=== PATIENT | female | born 1975 | race Caucasian/White ===

== ENCOUNTER → 2020-09-06 10:12 | Outpatient (CLI) | payer OTHER, SELFPAY ==
--- NOTE | 2020-09-06 10:17 | RAD_ITS ---
STUDY: X-RAY - LEFT SHOULDER REASON FOR EXAM: Female, 44 years old. Inflammatory polyarthropathy. TECHNIQUE: 2 view(s) of the shoulder. COMPARISON: None. FINDINGS: Normal glenohumeral articulation. Normal acromioclavicular joint. Normal acromion. Normal humeral head and visualized proximal humerus. The soft tissue structures are unremarkable. Normal visualized pulmonary apex. RAD/Shoulder min 2 Views IMPRESSION: No abnormality of the left shoulder. Electronically Signed: Shaggy Olivares MD at 11:41 EDT , Service support ,
--- NOTE | 2020-09-06 10:17 | RAD_ITS ---
STUDY: X-RAY - PELVIS REASON FOR EXAM: Female, 44 years old. Inflammatory polyarthropathy. TECHNIQUE: One view of the pelvis was obtained. COMPARISON: None. FINDINGS: There is a non-specific bowel gas pattern. Pelvic phleboliths. 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 RAD/Pelvis 1 or 2 Views IMPRESSION: Mild arthrosis of the sacroiliac joints, symphysis pubis and both hips medially. No acute abnormality, erosive changes or periostitis. Electronically Signed: Shaggy Olivares MD at 11:41 EDT , Service support ,
[2020-09-06 12:52] LABS: Absolute Lymphocyte Count 1.05 X10^3/uL (0.83-4.51); Absolute Neutrophil Count 1.8 X10^3/uL (2.0-7.7); Basophil# 0.02 X10^3/uL; Basophil% 0.6 % (0-1); Eosinophil# 0.08 X10^3/uL; Eosinophils% 2.5 % (0-5); Hematocrit 45.3 % (37-47); Hemoglobin 14.6 g/dL (12.0-15.0); Lymphocyte # 1.05 X10^3/ul (0.83-4.51); Lymphocyte % 32.2 % (19-41); Mean Corp Hgb Conc 32.2 g/dL (32-36); Mean Corpuscular Hgb 29.1 pg (27.0-32.0); Mean Corpuscular Volume 90.2 fL (81-99); Mean Platelet Vol. 13.3 fl (6.2-12.0); Monocyte# 0.26 X10^3/uL; NRBC Flagged by Analyzer 0 % (0-5); Neutrophil # 1.84 X10^3/uL (2.7-7.7); Neutrophil % 56.4 % (47-70); Platelet Count 133 K/mm3 (150-450); RBC Distribution Width CV 11.8 % (11.6-14.6); RBC Distribution Width SD 38.9 fl (35.1-43.9); Red Blood Count 5.02 M/mm3 (4.2-5.4); White Blood Count 3.3 K/mm3 (4.4-11.0)
[2020-09-06 13:50] LABS: ALB/GLOB Ratio 1.1 RATIO (0.9-2.4); AST(SGOT) 21 U/L (15-37); Alanine Aminotransfer ALT/SGPT 22 U/L (13-56); Alkaline Phosphatase 74 U/L (45-117); Anion Gap 5 (5-15); BUN 14 mg/dL (7-18); BUN/Creat Ratio 18.2 RATIO (10-20); CRP < 2.90 mg/L (0.0-3.0); Chloride 106 mmol/L (98-107); Creatinine, Serum 0.77 mg/dL (0.55-1.02); EST Glomerular Filtration Rate 87 mL/min (>60); Erythrocyte Sedimentation Rate 2 mm/hr (0-30); Est Glom Filt Rate - Afr Amer 106 mL/min (>60); Globulin 3.5 g/dL (2.2-4.2); Glucose 78 mg/dL (74-106); Potassium 3.8 mmol/L (3.5-5.1); Protein, Total 7.5 g/dL (6.4-8.2); Rheumatoid Factor < 10.0 IU/mL (<15); Sodium Level 139 mmol/L (136-145)
[2020-09-06 16:32] LABS: Hepatitis B Surface Antibody Non-Reactive; Hepatitis B Surface Antigen Non-Reactive (Nonreactive); Hepatitis C Antibody Non-Reactive (Nonreactive)
[2020-09-09 15:44] LABS: CCP IgG Antibodies 5 units (0-19); HLA B27 Negative (.)
== END ==
PROVIDERS: PCP Family Medicine; Referring Provider Internal Medicine Rheumatology; Visit Provider Internal Medicine Rheumatology
DX: M06.4 Inflammatory polyarthropathy (principal); M79.7 Fibromyalgia; G43.909 Migraine, unspecified, not intractable, without status migrainosus; I34.1 Nonrheumatic mitral (valve) prolapse
CPT/HCPCS: 36415; 72170; 73030; 80053; 81374; 85025; 85652; 86140; 86200; 86431; 86706; 86803; 87340

== ENCOUNTER 2021-02-21 13:19 | Day surgery (SDC) | payer OTHER, SELFPAY ==
[2021-02-21] VITALS (8 sets, daily range): BP systolic 93–111; BP diastolic 36–72; PULSE 62–91; RESP 16–18; TEMP 35.8–37; O2SAT 94–100; BMI 27.8
--- NOTE | 2021-02-21 13:29 | EKG12_ITS ---
Test Reason : PRE OP Blood Pressure : / mmHG Vent. Rate : 057 BPM Atrial Rate : 057 BPM P-R Int : 128 ms QRS Dur : 080 ms QT Int : 404 ms P-R-T Axes : -06 043 044 degrees QTc Int : 393 ms Somatic/Motion Artifact Sinus bradycardia Confirmed by ONEYDA KYLE, KAITLYNN ([id number]), digital editor PIETER SNOWDEN ([id number]) on 03/10/2021 8:33:09 AM Referred By: Jean-Paul Partida Confirmed By:KAITLYNN CALL MD
[2021-02-21] MEDS: Lactated Ringers 1,000 ML 15 ML IV ×2 (13:56→15:00)
[2021-02-21 14:22] LABS: Hematocrit 42.6 % (37-47); Hemoglobin 14.1 g/dL (12.0-15.0); Mean Corp Hgb Conc 33.1 g/dL (32-36); Mean Corpuscular Hgb 29.3 pg (27.0-32.0); Mean Corpuscular Volume 88.4 fL (81-99); Mean Platelet Vol. 12.7 fl (6.2-12.0); Platelet Count 112 K/mm3 (150-450); RBC Distribution Width CV 11.5 % (11.6-14.6); RBC Distribution Width SD 37.2 fl (35.1-43.9); Red Blood Count 4.82 M/mm3 (4.2-5.4); White Blood Count 2.3 K/mm3 (4.4-11.0)
[2021-02-21 14:45] LABS: Thyroid Stim Hormone (TSH) 1.37 uIU/mL (0.358-3.74)
[2021-02-21] MEDS: Bupivacaine Mpf 0.5% 30 ML VIAL (15:20)
[2021-02-21] MEDS: Epinephrine (1 mg/ml) 1 MG/ML VIAL (15:20)
--- NOTE | 2021-02-21 15:26 | PCM.OPRPT ---
Report of Operation Date of Procedure: 02/21/21 Pre-Operative Diagnosis: Adhesive capsulitis, SAIS, AC arthrosis left shoulder Post-Operative Diagnosis: same Surgery/Procedure Performed:: ARNALDO, ASD, [place] procedure left shoulder Surgeon: Jean-Paul Partida solar installer pv: Shaggy Marr Type of Anesthesia: General/Regional Anesthesiologist: Akbar Huizar Estimated Blood Loss (mL): 5 cc Admit VTE Documentation VTE Present on Admission: No VTE Mechan Device Prophylaxis: SCD's and Thigh High FELIX Hose VTE Pharm Prophylaxis ordered?: No Reason prophylaxis not ordered:: Treatment Not Indicated
[2021-02-21] MEDS: HYDROcodone Bitartrate/Apap 5/325 Tablet PO (17:27)
== END 2021-02-21 17:51 | disposition home or self-care (01) ==
LOC: SDC 13:20 → AC 13:22
PROVIDERS: Anesthesiology; PCP Family Medicine; Referring Provider Orthopaedic Surgery; Visit Provider Orthopaedic Surgery
PROC: (CPT 29805; principal; 2021-02-21 14:30)
DX: M75.02 Adhesive capsulitis of left shoulder (principal); M19.012 Primary osteoarthritis, left shoulder; M06.9 Rheumatoid arthritis, unspecified; M79.7 Fibromyalgia; E03.9 Hypothyroidism, unspecified; Z79.899 Other long term (current) drug therapy
CPT/HCPCS: 29824; 29826; 84443; 85027; 93005; J7120; J2405

== ENCOUNTER → 2023-03-26 | Outpatient (CLI) | payer OTHER, SELFPAY ==
--- OUTSIDE RECORDS SUMMARY | 2023-03-26 07:38 | XMS RPT_ITS | CCD ---
Author Name Unknown Address [facility] [address] [place] [address] Organization [facility] Care Team Providers Care Transmitter Operator Name Role Phone REJI HANSEN, DR NANNETTE Verdugo Primary Care Physician JAH HARDEN Attending Unavailable NANNETTE NEVILLE Primary Care Unavailable Ruth Baca Unavailable Nannette Neville DO Primary Care Provider [phone] JAH HARDEN Referring Unavailable NANNETTE NEVILLE Primary Care Unavailable DEEDEE AL Attending Unavailab le REJI , DR NANNETTE Verdugo Primary Care UnavailCHARIS Moscoso MD Attending Unavailable REJI DO, DR NANNETTE Verdugo Primary Care UnavailDEEDEE Iqbal Attending Unavailab le REJI , DR NANNETTE Verdugo Primary Care UnavailROSANNA Mcmanus MD Attending Unavaila ble REJI DO, DR NANNETTE Verdugo Primary Care Unavailaury miller Pcp MANAGER GOVERNMENT, Erin Primary Care Provider Unavailaury e Allergies Allergy Classification Reported Allergen(s) Allergy Type Date of Onset Reaction(s) Facility (14 sources) traMADol; Translations: [tramadol] Drug Allergy 03-04-2018 [facility] Medications Current Medications Medication Drug Class(es) Dates Sig (Normalized) Sig (Original) ascorbic acid 250 mg oral tablet (4 sources) Vitamin C Start: 09-11-2019 Vitamin C 250 mg oral tablet Dose : 250 mg = 1 tab(s), Oral, qDay, # 30 tab(s), 0 Refill(s) Start Date: 09/11/19 Status: Ordered benzonatate 100 mg oral capsule (2 sources) Non-narcotic Antitussive Start: 04-27-2022 take 1 capsule by mouth three times daily benzonatate 100 mg oral capsule take 1 capsule by mouth three times a day for 7 days Start Date: 04/27/22 Status: Ordered DULoxetine 30 mg delayed release oral capsule (1 source) Serotonin and Norepinephrine Reuptake Inhibitor Start: 10-12-2022 DULoxetine 30 mg oral delayed release capsule Dose : 30 mg = 1 cap(s), Oral, qDay, # 30 cap(s), 0 Refill(s), Pharmacy: [id number] #[id number], Fibromyalgia, 172, cm, 10/12/22 9:41:00 EDT, Height, kg, 10/12/22 9:41:00 EDT, Dosing Weight Start Date: 10/12/22 Status: Ordered 168 hr estradiol 0.17541 mg/hr transdermal system (7 sources) Estrogen Start: 09-11-2019 estradiol 0.1 mg/24 hours weekly transdermal film, extended release Apply 1 patch(es), Topical, qWeek, # 12 patch(es), 3 Refill(s), Pharmacy: [id number] 167.64, cm, 09/11/19 13:36:00 EDT, Height, 70, kg, 09/11/19 13:36:00 EDT, Dosing Weight Start Date: 09/11/19 Status: Ordered Completed/Discontinued Medications Medication Drug Class(es) Dates Sig (Normalized) Sig (Original) Albuterol (Eqv-ProAir HFA) 90 mcg/inh inhalation aerosol (2 sources) Start: 04-19-2022 End: 05-19-2022 take 1 dose by inhalation every six hours as needed for cough Albuterol (Eqv-ProAir HFA) 90 mcg/inh inhalation aerosol Dose = 2 puff(s), Inhalation, q6hr, PRN Cough, # 18 gram(s), 0 Refill(s), Pharmacy: [id number] #[id number], Bronchitis Cough, 168.9, cm, 07/05/20 16:08:00 EDT, Height Start Date: 04/19/22 Stop Date: 05/19/22 Status: Ordered levothyroxine sodium 0.025 mg oral tablet (10 sources) l-Thyroxine Start: 06-29-2022 take 1 tablet by mouth once daily SYNTHROID 25 mcg tablet Take 1 tablet by mouth once daily. 0 06/29/2022 Active Problems Active Problems Problem Classification Problem Date Documented Date Episodic/Chronic Chronic obstructive pulmonary disease and bronchiectasis (2 sources) Bronchitis 04-19-2022 Episodic Coagulation and hemorrhagic disorders (2 sources) Chronic idiopathic thrombocytopenic purpura; Translations: [Immune thrombocytopenic purpura] Onset: 03-04-2018 03-04-2018 Chronic Diabetes or abnormal glucose tolerance complicating ; childbirth; or the puerperium (1 source) History of gestational diabetes mellitus 10-13-2022 Episodic Diseases of white blood cells (2 sources) Leukopenia; Translations: [Decreased white blood cell count, unspecified] Onset: 03-04-2018 03-04-2018 Chronic Heart valve disorders (10 sources) Mitral valve prolapse 04-14-2014 Chronic Menopausal disorders (1 source) Disorder associated with menstruation AND/OR menopause; Translations: [Menopausal and female climacteric states] Chronic Menstrual disorders (10 sources) Excessive and frequent menstruation 10-03-2017 Chronic Nutritional deficiencies (1 source) Vitamin D deficiency 10-13-2022 Chronic Other connective tissue disease (1 source) Fibromyalgia 10-12-2022 Episodic Other lower respiratory disease (2 sources) Cough 04-19-2022 Episodic Other nervous system disorders (10 sources) H/O: migraine 10-03-2017 Episodic Other non-traumatic joint disorders (1 source) Multiple joint pain; Translations: [Pain in unspecified joint] 09-01-2022 Episodic Other non-traumatic joint disorders (1 source) Pain in right knee; Translations: [Pain in joint, lower leg] 09-01-2022 Episodic Other non-traumatic joint disorders (1 source) Pain in unspecified joint; Translations: [Pain in joint, multiple sites] Onset: 09-01-2022 Episodic Other upper respiratory infections (2 sources) Acute sinusitis 04-27-2022 Episodic Thyroid disorders (11 sources) 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 09-01-2022 07:42-0400 Body weight 85.73 kg Jah Fina PA-C Work Phone: [facility] 09-01-2022 07:42-0400 Diastolic blood pressure 82 mm[Hg] Jah Fina PA-C Work Phone: [facility] 09-01-2022 07:42-0400 Heart rate 62 /min Jah Fina PA-C Work Phone: [facility] 09-01-2022 07:42-0400 SaO2% (BldA) [Mass fraction] 96 % Jah Fina PA-C Work Phone: [facility] 09-01-2022 07:42-0400 Systolic blood pressure 131 mm[Hg] Jah Fina PA-C Work Phone: [facility] Encounters Encounter Date Encounter Type Care Provider Facility Start: 10-26-2022 End: 10-27-2022 ambulatory ROSANNA TAYLOR MD Facility:B Start: 10-26-2022 End: 10-26-2022 Patient encounter procedure ROSANNA TAYLOR MD [facility] Start: 09-01-2022 End: 09-02-2022 ambulatory JAH FINA Facility:[facility] Start: 09-01-2022 End: 09-01-2022 ambulatory JAH FINA Facility:[facility] Start: 09-01-2022 End: 09-01-2022 Patient encounter procedure Jah Fina PA-C Work Phone: Rheumatology Procedures Date Procedure Procedure Detail Performing Clinician Start: 10-17-[address] NANNETTE FAN DO Start: 10-17-[address] NANNETTE NEVILLE DO Plan of Treatment Date Care Activity Detail Author Start: 10-27-2022 Influenza vaccination C [facility] Start: 2022 Cologuard (FIT-DNA) Cologuard (FIT-D NA) [facility] Start: 2022 Colonoscopy Colonoscopy [facility] Start: 2022 Colorectal Cancer Screening Colorectal Cancer Screening [facility] Start: [address] COLONOGRAPHY [facility] Start: 2022 Diabetes Screening Diabetes Screenin g [facility] Start: 2022 Fecal Occult Blood Fecal Occult Bloo d [facility] Start: 2022 Lipid 1996 panel - S franco or Plasma Lipid Screening [facility] Start: 2022 SIGMOIDOSCOPY SIGMOIDOSCOPY [facility] Start: 02-26-2022 DEPRESSION ASSESSMENT DEPRESSION ASS ESSMENT [facility] Start: 01-25-2021 COVID-19 VACCINE (3 - Pfizer series) COVID-19 VACCINE (3 - Pfizer series) [facility] Start: 10-10-2019 PAP TESTING PAP TESTING [facility] Start: [address] [facility] Start: 10-10-2007 HPV TESTING HPV TESTING [facility] Start: 1998 Pap Testing Pap Testing [facility] Start: 1996 Urine microalbumin profile [facility] Start: 10-10-1995 HIV SCREENING HIV SCREENING [facility] Start: 1977 HEPATITIS B (1 of 3 - 3-dose series) HEPATITIS B (1 of 3 - 3-dose series) [facility] Start: 1977 Hepatitis B Vaccine (1 of 3 - 3-dose series) Hepatitis B Vaccine (1 of 3 - 3-dose series) 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 [facility] Payers Date Payer Category Payer Unknown [id number] 2018 Unknown MMO MMO [employer] PPO [id number] 2018-Present [phone] [address] [place] [address] PPO [id number] 1977 Unknown [id number] 1977 Unknown [id number] 1977 Unknown [id number] 1977 Unknown [id number] Social History Date Type Detail Facility Start: 04-05-2018 End: 09-01-2022 Never smoked tobacco (finding) [facility] Sex Assigned At Female [facility] Start: 09-01-2022 Tobacco use and exposure Smokeless tobacco non-user 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 Start: 08-31-2022 End: 09-01-2022 History of Social function [facility] Start: 08-31-2022 End: 09-01-2022 Tobacco use panel [facility] Adult Depression Screening Assessment [address] [facility] Start: 1975 Sex Assigned At Not on file [facility] Tobacco smoking stat [facility] Tobacco smoking consumption unknown [facility] Start: 11-18-2021 End: 11-28-2021 Exposure to SARS-CoV-2 (event) Not sure [facility] Clinical Notes 05-19-2020 to 09-01-2022 Patient InstructionsJah Harden PA-C - 09/01/2022 7:38 AM EDTLaboratoryLaboratory Note Date & Type Note Facility 09-01-2022 Note HNO ID: [id number] Author: Jah Harden PA-C Service: ? Author Type: Physician Skull Grinder Type: Progress Notes Filed: 09/01/2022 4:41 PM Note Text: Rheumatology CONSULTATION Referring Provider: None Date of Service: 09/01/2022 Gender: female Ethnicity: White Age: [age] year old Chief Complaint: New Patient Evaluation (RA) Last Rheumatology visit: None at [facility] Major Vargas is a 46 year old White female who presents on 09/01/2022 for in person visit for evaluation of New Patient Evaluation (RA). HISTORY OF PRESENT ILLNESS RF Neg 07/02/2020 ALEKS negative 03/24/2020 CCP negative 07/07/21 She is here in preparation for the rebollar. She states a few years ago she saw someone in [place] for RA. She states she has never had the blood work markers for her RA. She took plaquenil for RA for over a year, never really saw improvement from this treatment. She states that she feels OK in the summer, much worse with weather changes, stairs are difficult. Wants to try to start something now in preparation for the winter She states during the winter she has to sit on a heating pad because of her symptoms. She also is going to see endocrinology for her thyroid issues. She states she previously was taking naltrexone from her application lead. Her pain is all over: Knees, ankles, hands, shoulders, neck, entire back Joint swelling: No AM stiffness: I don't know about that Describes her symptoms as all over ache in the bones . She states when she is on the prednisone, it takes the edge off States her knees hurt a lot. She had to move her bedroom downstairs because of her knee pain. She has difficulty with inclines They offered a medication in the past that could cause nausea. RHEUMATOLOGIC REVIEW OF SYSTEMS: No ulcers in mouth or nose No photosensenitivity No history of blood clots No miscarriages + fatigue No history of Raynaud's No fevers No bright red painful eyes Occasional sicca No sob No cough No diarrhea, intermittent constipation + chronic back pain ache all over ? history of psoriasis - has red patch and scaling on her elbows No specific morning stiffness No recent weight loss No neuropathy Family History: Dad with [employer] - muscular degeneration disease Mom - all of it, autoimmune stuff but no specific diagnosis ever identified (PsO on scalp and ears) Grandmother with arthritis. Social: works as [employer] in [place] [employer] child Smoking: no ETOH: none Disease History See HPI Patient-Entered Data RAPID 3 Burns Activities of Daily Living 08/31/2022 12:50 PM Dress self? Without ANY difficulty Get in and out of bed? Without ANY difficulty Walk outdoors? Without ANY difficulty Wash and dry body? Without ANY difficulty Get in and out of car? Without ANY difficulty RAPID 3 Disease Activity Weighed Score Levels: 0 - 1: Near Remission 1.3 - 2.0: Low Severity 2.3 - 4.0: Moderate Severity 4.3 - 10.0: High Severity RAPID-3 Weighed Score 08/31/2022 RAPID 3 Weighed Score 2.11 (Moderate Severity (MS)) PROMIS Assessments PROMIS Global Health - (T-Scores - the mean of general population = 50. Five points is a clinically meaningful difference.) 08/31/2022 Physical T-Score 42.3 Mental T-Score 43.5 PROMIS CAT Pain Interference 08/31/2022 PROMIS Pain Interference T-Score (range: 10 - 90) 56 (mild) PROMIS Pain Interference Percentile 27 % PROMIS CAT Fatigue 08/31/2022 PROMIS Fatigue T-Score 53 (within normal limits) PROMIS Fatigue Percentile 38 % PROMIS PHYSICAL FUNCTION T-SCORE 08/31/2022 PROMIS Physical Function T-Score 44 (mild dysfunction) Physical Function Percentile 27 % PAIN EVALUATION No data found in the last 1 encounters. Treatment History Plaquenli x 1 year Relevant Previous Investigations CBC Latest Ref Rng AND Units 03/04/2018 WBC 3.70 - 11.00 k/uL 3.50(L) HEMOGLOBIN 11.5 - 15.5 g/dL 14.8 HEMOGLOBIN, JULIETTE 11.5 - 15.5 g/dL 14.5 HEMATOCRIT 36.0 - 46.0 % 45.0 PLATELETS 150 - 400 k/uL 125(L) ABS NEUT (ANC) 1.45 - 7.50 k/uL 1.89 ABS NEUT, JULIETTE 1.45 - 7.50 k/uL 2.13 ABS LYMP, JULIETTE 1.00 - 4.00 k/uL 1.10 ABS LYMPH 1.00 - 4.00 k/uL 1.12 ESR, WSR Latest Ref Rng AND Units 09/01/2022 WSR 0 - 20 mm/hr 2 CRP Latest Ref Rng AND Units 09/01/2022 CRP <0.9 mg/dL <0.3 CK Latest Ref Rng AND Units 09/01/2022 CK 42 - 196 U/L 76 Hepatitis Screen Latest Ref Rng AND Units 03/04/2018 HEPCABEIA Negative Negative Urinalysis Latest Ref Rng AND Units 07/07/2021 RBC, URINE 0 - 3 RBC/HPF 1 Imaging / Studies Last XR Hand/Finger - Impression Only No resulted procedures found. Last MRI Hand - Impression Only No resulted procedures found. Last XR Chest - Impression Only No resulted procedures found. Last XR Cervical Spine - Impression Only No resulted procedures found. OUTSIDE STUDIES / DATA 07/15/2021 EXAMINATION: XR both hands Berenice two views each side, four views COMPARIS (more content not included)... 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 This condition is associated with abnormal central processing of various peripheral stimuli including pain. Fibromyalgia is a musculoskeletal manifestation of this condition. It is a very common condition and is a diagnosis of inclusion rather than that of exclusion, i.e. it can co-exist with other concomitant rheumatologic and/or non-rheumatologic conditions. A meta-analysis from the [facility] in [place] suggested that concomitant fibromyalgia is common in patients with inflammatory arthritis, which can have a major impact on assessing disease severity and treatment decisions. The overall prevalence of fibromyalgia was 21% among patients with rheumatoid arthritis and 13% in ankylosing spondylitis, whereas the condition is reported in approximately 1% to 5% of the general population, according to Bernard Cooper, [facility], PhD, of the [facility] in [place], and colleagues. The cornerstones of therapy for fibromyalgia (based on level 1 evidence) are regular aerobic exercise (stationary bike, pool therapy), optimal sleep, and optimal treatment of depression. Optimal quality sleep (especially deep sleep - phase 3/4 NREM) is important to achieve. If your sleep remains disturbed, you might need to have a sleep study to identify a primary sleep disorder that might need concomitant treatment. You might also benefit from relaxation techniques such as yoga, luisito chi, acupuncture, or biofeedback to help deal better with stress. I emphasize that all the three aspects of the treatment (sleep, exercise, depression) be addressed simultaneously for maximum benefit and effective treatment of this condition. Doing one or the other will result in less than an optimal response to treatment. Medications sometimes used to treat fibromyalgia include those to help correct sleep disturbances and depression such as low dose antidepressants (Cymbalta or Savella) or non-habit forming sedatives and mild analgesics such as Tylenol. Lyrica is another drug that has been FDA approved for treatment of fibromyalgia. Narcotics have been found to be not only ineffective, but harmful and habit forming, and should be avoided. Therapy must be highly individualized. Most signs and symptoms of fibromyalgia can be managed by primary care providers under the guidance of a specialist. So please discuss the following with your primary care provider: - Aquatic therapy - Routine low grade aerobic exercise - Relaxation techniques / mindfulness / yoga /Luisito Chi / Qi Gong - Improvement of sleep hygiene - Appropriately address depression/anxiety with SNRIs - Can use Gabapentin and Tricyclics for symptomatic benefit - Occupational therapy evaluation for desensitization therapy. Please continue current medications for now. Final treatment recommendations will be based on completed evaluation and establishment of a diagnosis. Aleve (naproxen) 220 mg 1 twice daily for 2-4 weeks. documented in this encounter [facility] 09-01-2022 History of Present illness Narrative Images from the original note were not included. Rheumatology CONSULTATION Referring Provider: None Date of Service: 09/01/2022 Gender: female Ethnicity: White Age: [age] year old Chief Complaint: New Patient Evaluation (RA) Last Rheumatology visit: None at [facility] Major Vargas is a 46 year old White female who presents on 09/01/2022 for in person visit for evaluation of New Patient Evaluation (RA). HISTORY OF PRESENT ILLNESS RF Neg 07/02/2020 ALEKS negative 03/24/2020 CCP negative 07/07/21 She is here in preparation for the rebollar. She states a few years ago she saw someone in [place] for RA. She states she has never had the blood work markers for her RA. She took plaquenil for RA for over a year, never really saw improvement from this treatment. She states that she feels OK in the summer, much worse with weather changes, stairs are difficult. Wants to try to start something now in preparation for the winter She states during the winter she has to sit on a heating pad because of her symptoms. She also is going to see endocrinology for her thyroid issues. She states she previously was taking naltrexone from her application lead. Her pain is all over: Knees, ankles, hands, shoulders, neck, entire back Joint swelling: No AM stiffness: I don't know about that Describes her symptoms as all over ache in the bones . She states when she is on the prednisone, it takes the edge off States her knees hurt a lot. She had to move her bedroom downstairs because of her knee pain. She has difficulty with inclines They offered a medication in the past that could cause nausea. RHEUMATOLOGIC REVIEW OF SYSTEMS: No ulcers in mouth or nose No photosensenitivity No history of blood clots No miscarriages + fatigue No history of Raynaud's No fevers No bright red painful eyes Occasional sicca No sob No cough No diarrhea, intermittent constipation + chronic back pain ache all over ? history of psoriasis - has red patch and scaling on her elbows No specific morning stiffness No recent weight loss No neuropathy Family History: Dad with [employer] - muscular degeneration disease Mom - all of it, autoimmune stuff but no specific diagnosis ever identified (PsO on scalp and ears) Grandmother with arthritis. Social: works as [employer] in [place] [employer] child Smoking: no ETOH: none Disease History See HPI Patient-Entered Data RAPID 3 Burns Activities of Daily Living 08/31/2022 12:50 PM Dress self? Without ANY difficulty Get in and out of bed? Without ANY difficulty Walk outdoors? Without ANY difficulty Wash and dry body? Without ANY difficulty Get in and out of car? Without ANY difficulty RAPID 3 Disease Activity Weighed Score Levels: 0 - 1: Near Remission 1.3 - 2.0: Low Severity 2.3 - 4.0: Moderate Severity 4.3 - 10.0: High Severity RAPID-3 Weighed Score 08/31/2022 RAPID 3 Weighed Score 2.11 (Moderate Severity (MS)) PROMIS Assessments PROMIS Global Health - (T-Scores - the mean of general population = 50. Five points is a clinically meaningful difference.) 08/31/2022 Physical T-Score 42.3 Mental T-Score 43.5 PROMIS CAT Pain Interference 08/31/2022 PROMIS Pain Interference T-Score (range: 10 - 90) 56 (mild) PROMIS Pain Interference Percentile 27 % PROMIS CAT Fatigue 08/31/2022 PROMIS Fatigue T-Score 53 (within normal limits) PROMIS Fatigue Percentile 38 % PROMIS PHYSICAL FUNCTION T-SCORE 08/31/2022 PROMIS Physical Function T-Score 44 (mild dysfunction) Physical Function Percentile 27 % PAIN EVALUATION No data found in the last 1 encounters. Treatment History Plaquenli x 1 year Relevant Previous Investigations CBC Latest Ref Rng & Units 03/04/2018 WBC 3.70 - 11.00 k/uL 3.50(L) HEMOGLOBIN 11.5 - 15.5 g/dL 14.8 HEMOGLOBIN, JULIETTE 11.5 - 15.5 g/dL 14.5 HEMATOCRIT 36.0 - 46.0 % 45.0 PLATELETS 150 - 400 k/uL 125(L) ABS NEUT (ANC) 1.45 - 7.50 k/uL 1.89 ABS NEUT, JULIETTE 1.45 - 7.50 k/uL 2.13 ABS LYMP, JULIETTE 1.00 - 4.00 k/uL 1.10 ABS LYMPH 1.00 - 4.00 k/uL 1.12 ESR, WSR Latest Ref Rng & Units 09/01/2022 WSR 0 - 20 mm/hr 2 CRP Latest Ref Rng & Units 09/01/2022 CRP <0.9 mg/dL <0.3 CK Latest Ref Rng & Units 09/01/2022 CK 42 - 196 U/L 76 Hepatitis Screen Latest Ref Rng & Units 03/04/2018 HEPCABEIA Negative Negative Urinalysis Latest Ref Rng & Units 07/07/2021 RBC, URINE 0 - 3 RBC/HPF 1 Imaging / Studies Last XR Hand/Finger - Impression Only No resulted procedures found. Last MRI Hand - Impression Only No resulted procedures found. Last XR Chest - Impression Only No resulted procedures found. Last XR Cervical Spine - Impression Only No resulted procedures found. OUTSIDE STUDIES / DATA 07/15/2021 EXAMINATION: XR both hands ATUL and Cheryl two views each side, four views COMPARISON: None HISTORY: ORDERING SYSTEM PROVIDED HISTORY: Reason for Exam: pain in left and right hand, FINDINGS: No acute fracture, dislocation, bony lytic process or periosteal reaction is seen in the visualized bones and joints. No significant degenerative or erosive type of arthritis or soft tissue calcification. IMPRESSION: No significant skeletal abnormality is seen in either hand. EXAMINATION: XR both knees three views each side COMPARISON: None HISTORY: ORDERING SYSTEM PROVIDED HISTORY: Reason for Exam: pain in right knee; ORDERING SYSTEM PROVIDED HISTORY: Reason for Exam: pain in left knee, FINDINGS: No acute fracture, dislocation, bony lytic process or periosteal reaction is seen in the visualized bones and joints. No significant degenerative or erosive type of arthritis or soft tissue calcification. No joint space narrowing or joint effusion. IMPRESSION: No significant skeletal abnormality is seen. Review of Systems Review of Systems CONSTITUTION: Positive for: Recent weight change Negative for: Fever HEENT: Negative for: Nosebleeds, Mouth sores, Trouble swallowing and Dry mouth RESPIRATORY: Negative for: Cough, Shortness of breath and Pain with breathing GASTROINTESTINAL: Negative for: Melena, Diarrhea, Heartburn and Abdominal pain MUSCULOSKELETAL: Positive for: Arthralgias, Myalgias, Joint swelling and Morning Joint Stiffness Negative for: Muscle weakness NEUROLOGICAL: Positive for: Headaches and Memory loss Negative for: Numbness SKIN: Positive for: Rash and Nail changes Negative for: Sun Sensitive Rash, Skin changes and Hair loss EYES: Negative for: Eye pain, Eye redness, Eye dryness and visual disturbance CARDIOVASCULAR: Negative for: Chest pain and Leg swelling GENITOURINARY: Negative for: Dysuria and Hematuria HEMATOLOGIC/LYMPHATIC: Negative for: Swollen glandsAll other reviewed and negative other than HPI. Problem List ACTIVE PROBLEM LIST Chronic Itp (Idiopathic Thrombocytopenia) (Hcc) Leukopenia Past Medical History No past medical history on file. Past Surgical History PAST SURGICAL HISTORY Procedure Laterality Date HYSTERECTOMY HX 2018 Family History FAMILY HISTORY Problem Relation Age of Onset Asthma Mother other (MSA) Mother other (IBM) Father Stroke Paternal Grandmother Cancer Paternal Grandfather leukemia Cancer Maternal Aunt breast Social History Social History Tobacco Use Smoking status: Never Smokeless tobacco: Never Substance Use Topics Alcohol use: No Drug use: No Medications Current Outpatient Medications Medication Sig SYNTHROID 25 mcg tablet Take 1 tablet by mouth once daily. thyroid, pork, 90 mg tablet Take 1 tablet by mouth once daily. progesterone micronized (PROMETRIUM) 100 mg capsule Take 1 capsule by mouth once daily. estradiol topical cream 0.05% (0.5 mg/gram) (CPD) Apply to affected area. Apply 0.1 mL daily to upper inner arm. Estradiol 3.5 mg Estriol 0.5 mg/0.1 mL cream naltrexone 4.5 mg cap Take by mouth. No current facility-administered medications for this visit. Physical Exam BP 131/82 Pulse 62 Ht 5' 6 (1.68m) Wt 189 lb (85.7kg) SpO2 96% BMI 30.52 kg/(m^2). Physical Exam Constitutional: General: She is not in acute distress. Appearance: Normal appearance. She is not toxic-appearing. HENT: Head: Normocephalic and atraumatic. Eyes: General: No scleral icterus. Conjunctiva/sclera: Conjunctivae normal. Cardiovascular: Rate and Rhythm: Normal rate and regular rhythm. Pulses: Normal pulses. Heart sounds: Normal heart sounds. Pulmonary: Effort: Pulmonary effort is normal. Breath sounds: Normal breath sounds. No stridor. No wheezing or rales. Musculoskeletal: Cervical back: Normal range of motion and neck supple. No tenderness. Right lower leg: No edema. Left lower leg: No edema. Comments: No swelling or synovitis noted in hands, wrists, elbows, shoulders, knees, ankles or feet today. Able to make fists. + TTP to bilateral knees with pain in popliteal region Lymphadenopathy: Cervical: No cervical adenopathy. Skin: General: Skin is warm and dry. Findings: No rash. Comments: No malar rash + Red erythematous plaque on R distal forearm extensor surface L forearm with scaling on extensor surface of forearm No scaling in ears or around scalp Neurological: General: No focal deficit present. Mental Status: She is alert. Mental status is at baseline. Psychiatric: Mood and Affect: Mood normal. Behavior: Behavior normal. Thought Content: Thought content normal. Judgment: Judgment normal. There is currently no information documented on the homunculus. Go to the Rheumatology activity and complete the homunculus joint exam. Joint Exam 09/01/2022 No joint exam has been documented for this visit Impression Diagnoses: (M25.50) Pain in joint, multiple sites (primary encounter diagnosis) (M25.561, M25.562, G89.29) Chronic pain of both knees Hepatitis B Antibody test: Negative (03/04/2018) Major Vargas is a 46 year old female with past medical history of Chronic ITP, Hypothyroidism who is here today for evaluation of multiple joint pain, history of seronegative RA, fibromyalgia. 1/ Joint pain -previously diagnosed with seronegative rheumatoid arthritis and fibromyalgia. Tried 1 year trial of hydroxychloroquine without benefit. Only gets partial benefit with steroid courses. By history most concerning symptoms of inflammatory arthritis are bilateral knee bilateral ankle and bilateral shoulder pain. However there is no prolonged morning stiffness. There is no objective synovitis or joint effusions. Also her history of a widespread ache is more consistent with fibromyalgia. -At this time I feel rheumatoid arthritis is less likely. . she does have rash on bilateral elbows, it does not appear to be classic psoriasis plaques but given her symptoms and history, it may be reasonable for her to see dermatology and pursue formal diagnosis of psoriasis. -Discussed that both fibromyalgia and inflammatory arthritis can coexist. At this time most of her symptoms seem consistent with fibromyalgia. Discussed fibromyalgia diagnosis, treatments including Cymbatla , gabapentin, Lyrica. Encouraged follow-up with primary care for a prescription of these. - Also discussed seeing integrative medicine for fibromyalgia if she is interested. -Discussed if bilateral knee pain persists, I would recommend physical therapy initially. Also consider daily trial of naproxen 220 to 440 mg twice daily OTC on a regular basis. This will help treat mild form of inflammatory psoriatic arthritis, If this is present. RF, CCP, ALEKS all negative previously. - We will check inflammatory markers, CK. -Recommend follow-up in rheumatology in 3 to 4 months after trial of above medications with primary care. 2/ General Health Maintenance - - The patient should continue to follow up with their primary care provider regarding all other concerns documented above which were not addressed at this visit, as well as to remain up to date on all Preventive Health measures and routine malignancy screening based on his/her age and comorbid conditions. Plan Medication Adjustments today: Consider Cymbalta/savella with PCP or Gabapentin/Lyrica OTC naproxen 220-440 mg BID OTC for knee pain Labs: -SED RATE WESTERGREN: -C-REACTIVE PROTEIN (CRP): -CK CREATINE KINASE: -VITAMIN D 25 HYDROXY: Referrals -CONSULT TO PHYSICAL THERAPY: -CONSULT TO WELLNESS PHYSICIAN: Patient was given time to ask questions and agrees with plan as above. Follow up 3-4 mo with Rheum Physician No follow-ups on file. I spent a total of 65 minutes on the date of the service which included preparing to see the patient, [id number] patient care, completing clinical documentation, obtaining and/or reviewing separately obtained history, performing a medically appropriate examination, counseling and educating the patient/family/caregiver, and ordering medications, tests, or procedures. Jah Harden PA-C cc: PCP: Nannette Neville DO [address] [place] [address] documented in this encounter [facility] 06-27-2022 Evaluation + Plan note Diagnostic Tests PendingThyroglobulin, Serum with Reflex 06/27/22 [facility] 04-29-2022 Note . MICRO - Microbiology PROCEDURE: Urine Culture [*1] SOURCE: Urine, Clean Catch BODY SITE: COLLECTED DATE/TIME: 04/27/2022 16:44 EST RECEIVED DATE/TIME: 04/27/2022 21:03 EST START DATE/TIME: 04/27/2022 21:03 EST FREE TEXT SOURCE: FINAL REPORTS Final Report [] Verified Date/Time/Personnel: 04/29/2022 08:01 EST >100,000 cfu/ml Mixed growth consistent with normal urogenital wilton. PRELIMINARY REPORTS Preliminary Report [] Verified Date/Time/Personnel: 04/28/2022 09:03 EST No growth to date Performing Locations *1: This test was performed at: [facility], [address] [place] [address], [id number] , [facility] ([place]) 05-19-2020 Evaluation + Plan note Future Scheduled TestsThyroid Stimulating Hormone 05/19/20 [facility] Evaluation + Plan note Future Appointments Appointment Date:01/06/2021 02:30:00 PM Scheduled Provider:NANNETTE NEVILLE DO Location:[facility] Appointment Type:PC OV Future Scheduled TestsThyroid Stimulating Hormone 05/19/20 [facility] Evaluation + Plan note Future Appointments Appointment Date:12/26/2022 03:45:00 PM Scheduled Provider:ROSANNA TAYLOR MD Location:[facility] Appointment Type:ENDO OV Diagnostic Tests PendingThyroid Stimulating Immunoglobulin 10/26/22 [facility] Narrative No data available for this section [facility] Discharge instructions No data available for this section [facility] Progress note No data available for this section [facility] Summary Purpose Family History No Family History Records FoundNo Family History Records FoundNo Family History Records Found No data available for this section No Family History Records Found Advance Directives No Advanced Directives Records FoundNo Advanced Directives Records FoundNo Advanced Directives Records FoundNo Advanced Directives Records Found Reason for Referral Specialty Diagnoses / Procedures Referred By Contac t Referred To Contact Diagnoses Pain in joint, multiple sites Chronic pain of both knees Procedures CONSULT TO [facility]NESS PHYSICIAN OFFICE/OUTPATIENT [facility] MDM 60-74 MINUTES Jah Harden PA-C [address] [place] [address] Referral ID Status Reason Start Date Expiration Date Visits Requested Visits Authorized [id number] Authorized PCP Requested Referral 09/01/2022 09/01/2023 1 1 Specialty Diagnoses / Procedures Referred By Contac t Referred To Contact [facility] Diagnoses Chronic pain of both knees Procedures CONSULT TO PHYSICAL THERAPY PHYSICAL THERAPY EVALUATION HIGH COMPLEX 45 MINS Jah Harden PA-C [address] [place] [address] [facility] [address] [place] [address] Referral ID Status Reason Start Date Expiration Date Visits Requested Visits Authorized [id number] Pending Review Auto-Generat ed Referral 09/01/2022 09/01/2023 1 1 Additional Source Comments Care Team (unrecognized sect ion and content) Transmitter Operator Relationship Specialty Start Date End Date Pcp, SUPA Khan PCP - General 03/14/11 10/27/11 Nannette Neville DO [address] [facility] [place] [address] PCP - General Family Medicine 10/21/21 Ruth Baca [address] [place] [id number] Referring Rheumatology 08/01/21 INFORMATION SOURCE (unrecogn ized section and content) DATE CREATED AUTHOR AUTHOR'S ORGANIZ ATION 09/01/2022 [facility] DATE CREATED AUTHOR AUTHOR'S ORGANIZ ATION 09/02/2022 [facility] DATE CREATED AUTHOR AUTHOR'S ORGANIZ ATION 10/27/2022 [facility] ([place]) Care Team (unrecognized sect ion and content) Care Team Personnel Name: NANNETTE NEVILLE DO Position: P4 Physician - Primary Care Member Role: Primary Care Physician Address: Address: [address] [place] [address]- Care Team Related Persons Name: MARCIA VARGAS Address: Home [address] [place], [place] [id number] [place] Address: [address] [id number] Name: NATHAN HENSON Address: Home [address] [place], [place] [id number] [place] Source Comments (unrecognize d section and content) In the event this informatio n is protected by the Federal Confidentiality of Alcohol and Drug Abuse Patient Records regulations: The Federal rules restrict any use of the information to criminally investigate or prosecute any alcohol or drug abuse patient.[facility] the event this information is protected by the Federal Confidentiality of Alcohol and Drug Abuse Patient Records regulations: The Federal rules restrict any use of the information to criminally investigate or prosecute any alcohol or drug abuse patient.[facility] Reason for Visit (unrecogniz ed section and content) FOR RECORDS PERTAINING TO PATIENTS WHO ARE OR HAVE BEEN ENROLLED IN A CHEMICAL DEPENDENCY/SUBSTANCEABUSE PROGRAM, SOME INFORMATION MAY BE OMITTED. This clinical summary was aggregated from multiple sources. Caution should be exercised in using it in the provision of clinical care. This summary normalizes information from multiple sources, and as a consequence, information in this document may materially change the coding, format and clinical context of patient data. In addition, data may be omitted in some cases. CLINICAL DECISIONS SHOULD BE BASED ON THE PRIMARY CLINICAL RECORDS. [facility] [employer] provides no warranty or guarantee of the accuracy or completeness of information in this document.
[2023-03-26 10:54] LABS: Free T3 3.3 pg/mL (2.18-3.98); T4 Free Direct 0.61 ng/dL (0.76-1.46); Thyroid Stim Hormone (TSH) 5.41 uIU/mL (0.358-3.74)
== END | disposition home or self-care (01) ==
LOC: MTLAB 07:22
PROVIDERS: PCP Family Medicine; Referring Provider Internal Medicine Endocrinology, Diabetes & Metabolism; Visit Provider Internal Medicine Endocrinology, Diabetes & Metabolism
DX: E03.8 Other specified hypothyroidism (principal); M79.7 Fibromyalgia; E55.9 Vitamin D deficiency, unspecified
CPT/HCPCS: 36415; 84439; 84443; 84481

== ENCOUNTER → 2023-10-02 | Outpatient (CLI) | payer OTHER, SELFPAY ==
[2023-10-02 10:41] LABS: Vitamin D,25 Hydroxy 61.8 ng/mL
[2023-10-02 10:52] LABS: ALB/GLOB Ratio 1.1 RATIO (0.9-2.4); AST(SGOT) 23 U/L (15-37); Alanine Aminotransfer ALT/SGPT 24 U/L (13-56); Albumin, Serum 3.6 g/dL (3.2-5.0); Alkaline Phosphatase 91 U/L (45-117); Anion Gap 4 (5-15); BUN 21 mg/dL (7-18); BUN/Creat Ratio 25.2 RATIO (10-20); Calcium,Total 9.1 mg/dL (8.5-10.1); Chloride 109 mmol/L (98-107); Creatinine, Serum 0.83 mg/dL (0.55-1.02); EST Glomerular Filtration Rate 79 mL/min (>60); Est Glom Filt Rate - Afr Amer 95 mL/min (>60); Free T3 4.5 pg/mL (2.18-3.98); Globulin 3.4 g/dL (2.2-4.2); Glucose 90 mg/dL (74-106); Potassium 4.1 mmol/L (3.5-5.1); Sodium Level 141 mmol/L (136-145); T4 Free Direct 0.76 ng/dL (0.76-1.46); Thyroid Stim Hormone (TSH) 3.44 uIU/mL (0.358-3.74)
== END | disposition home or self-care (01) ==
LOC: MTLAB 07:33
PROVIDERS: PCP Family Medicine; Referring Provider Internal Medicine Endocrinology, Diabetes & Metabolism; Visit Provider Internal Medicine Endocrinology, Diabetes & Metabolism
DX: E06.3 Autoimmune thyroiditis (principal); E03.8 Other specified hypothyroidism; M79.7 Fibromyalgia; E55.9 Vitamin D deficiency, unspecified
CPT/HCPCS: 36415; 80053; 82306; 84439; 84443; 84481

== ENCOUNTER → 2024-06-27 | Outpatient (CLI) | payer BC, SELFPAY ==
[2024-06-27 11:03] LABS: ALB/GLOB Ratio 1.6 RATIO (0.9-2.4); AST(SGOT) 23 U/L (<=31); Alanine Aminotransfer ALT/SGPT 13 U/L (<=34); Albumin, Serum 4.5 g/dL (3.5-5.0); Alkaline Phosphatase 94 U/L (35-104); Anion Gap 11 (5-15); BUN 11 mg/dL (4-19); BUN/Creat Ratio 15.2 RATIO (10-20); Calcium,Total 9.8 mg/dL (7.6-11.0); Carbon Dioxide 25.7 mmol/L (21.0-32.0); Chloride 103 mmol/L (98-108); Cholesterol 209 mg/dL (<=200); Creatinine, Serum 0.74 mg/dL (0.70-1.20); EST Glomerular Filtration Rate 100 (>60); Globulin 2.9 g/dL (2.2-4.2); Glucose 81 mg/dL (70-99); High Density Lipoprotein 61 mg/dL; Low Density Lipoprotein Calc. 136 mg/dL; Potassium 4.4 mmol/L (3.3-5.1); Protein, Total 7.3 g/dL (5.9-8.4); Sodium Level 140 mmol/L (133-145); Total Bilirubin 0.68 mg/dL (0.00-1.30); Triglycerides 61 mg/dL; Very Low Density Lipoprotein 12 mg/dL (5-40); cholesterol:hdl ratio screen 3.44
== END | disposition home or self-care (01) ==
LOC: MTLAB 07:44
PROVIDERS: PCP Family Medicine; Referring Provider Family Medicine; Visit Provider Family Medicine
DX: Z00.00 Encounter for general adult medical examination without abnormal findings (principal); E03.9 Hypothyroidism, unspecified
CPT/HCPCS: 36415; 80053; 80061; 84432; 86800

== ENCOUNTER 2024-11-03 10:07 | Day surgery (SDC) | payer BC, SELFPAY ==
--- NOTE | 2024-10-30 15:11 | PAT.ANESEVAL ---
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 When Was Last Pacemaker Check QUESTION #4 FULL TEXT: You/Your Family Experience fever (hyperthermia) with Anesthesia Last Oral Intake Last Oral intake: Last Oral Intake NPO since Meds taken in AM with sips of water? Meds patient instructed to take am of surgery PONV PONV - coiled tubing supervisor: PONV - coiled tubing supervisor Female Yes 10/30/24 11:55 HX of Motion Sickness Yes 10/30/24 11:55 HX of N/V After Surgery No 10/30/24 11:55 Non-Smoker Yes 10/30/24 11:55 Duration of Surgery greater No 10/30/24 11:55 than 60 minutes Number of Risk Factors 3 10/30/24 11:55 PONV Score Moderate Risk 10/30/24 11:55 Height & Weight Height & Weight: Anesthesia: Height & Weight Height 5 ft 6 in 02/21/21 13:39 Respiratory Assessment Respiratory Assessment - coiled tubing supervisor: Respiratory Tract Infection Hx - coiled tubing supervisor Hx Respiratory Tract Infection No 10/30/24 11:55 STOP Sleep Apnea STOP Sleep Apnea - coiled tubing supervisor: STOP Sleep Apnea - coiled tubing supervisor Hx Hypertension No 10/30/24 11:55 Hx Sleep Apnea No 10/30/24 11:55 CPAP No 02/21/21 15:41 BIPAP Do you snore loudly (louder No 10/30/24 11:55 than talking or can be heard Do you often feel tired/ No 10/30/24 11:55 fatigued/ sleepy during daytime? Has anyone observed you stop No 10/30/24 11:55 breathing during sleep? STOP Results Negative 10/30/24 11:55 QUESTION #5 FULL TEXT : Do you snore loudly (louder than talking or can be heard through closed doors)? Tobacco Use History Tobacco Use History - coiled tubing supervisor: Tobacco Use History - coiled tubing supervisor Tobacco Use Smoking Status Never smoker 10/30/24 11:55 Hx Tobacco Use No 10/30/24 11:55 Years Smoking Packs Smoked per Day Smoking Cessation Date was within the last 15 years Hx Smoking Cessation Date Hx Smoking Cessation Counseling Hematologic Medial History Hematologic Hx - coiled tubing supervisor: Hematologic Medical Hx - clinical documentation spec Hx of Blood Transfusion No 10/30/24 11:55 Hx of Transfusion in last 3 No 10/30/24 11:55 Months Date of Last Transfusion (if within last 3 months) Ever experience any problems No 10/30/24 11:55 with transfusion(s)? Specify any problems Hx of Preganancy in last 3 No 10/30/24 11:55 Months Nurse Filling Out Transfusion JZOLLHUNTER 10/30/24 11:55 & Questions: Date: 10/30/24 10/30/24 11:55 Time: 11:57 10/30/24 11:55 Patient unable to answer at this time (ie. confused, unrespo /Reproduction History /Reproductive History - coiled tubing supervisor: /Reproductive Hx- coiled tubing supervisor Hx Now No 10/30/24 11:55 Gestational Age (in weeks): EDC: Hx Hx Para Hx Section SAB No 10/30/24 11:55 PFSH Medical History (Updated 09/11/24 @ 16:17 by ATUL Jimenez) Non-smoker Wears glasses History of steroid therapy Thyroid disease Rheumatoid arthritis Arthritis Back pain Migraine headache Fibromyalgia History of pain when walking History of irregular heartbeat Home Medications ?Medication ?Instructions ?Recorded ?Last Taken ?Type thyroid (pork) 60 mg tablet (EXPERIMENTAL BOX TESTER 60 mg PO DAILY 02/11/21 02/21/21 History Thyroid) peg 3350-electrolytes 236 240 ml PO Q10M #4,000 mL 09/11/24 Unknown Rx gram-22.74 gram-6.74 gram-5.86 gram solution (Golytely) Allergy/AdvReac Type Severity Reaction Status Date / Time tramadol Allergy Other Verified 10/30/24 11:51 Surgical History (Updated 02/11/21 @ 08:58 by Juana Galvan) Hx of prior ablation treatment Hx of hysterectomy Social History Smoking Status: Never smoker Audit: Pertinent Findings Pertinent Findings EKG Perinent findings: February 21, 2021. Sinus bradycardia 57 bpm. Recommendation Anesthesia Recommendation Anesthesia recommendation: OPTIMIZED for anesthesia
[2024-11-03] VITALS (8 sets, daily range): BP systolic 80–99; BP diastolic 54–75; PULSE 42–57; RESP 16; TEMP 36.4–37.1; O2SAT 95–100; BMI 24.9
[2024-11-03] MEDS: Lactated Ringers 1,000 ML 15 ML IV (10:44)
--- NOTE | 2024-11-03 10:58 | PCM.PRE.AN2 ---
ASA Classification* ASA Classification ASA Classification: 2 Assessment & Plan Anesthesia* Anesthesia Assessment Anesthesia Assessment: Discussed sedation and/or anesthesia options, risks, benefits, and alternatives with patient/parents/legal guardian/POA. Questions invited. The patient/parents/legal guardian/POA seems to understand and agrees to proceed with anesthesia plan. Reviewed the physical assessment, medical history, allergy history and patient home medications list prior to surgery/procedure/anesthetic and documented any changes. Performed airway and anesthesia risk assessments. Anesthesia Type Anesthesia Type: MAC History Source History Obtained from:: Patient and Chart Anesthesia Focused Assessment* Temperature: 98.8 F Pulse Rate: 57 Blood Pressure: 99/75 Respiratory Rate: 16 Pulse Ox: 100 Oxygen Delivery Method: Room Air Airway Assessment Mouth opens: >3 cm Mallampati Score: II Teeth Condition: Intact Neck Range of motion (ROM): Full ROM Labs Anesthesia Preop lab: CBC WBC 2.3 K/mm3 (4.4-11.0) L 02/21/21 14:05 02/21/21 RBC 4.82 M/mm3 (4.2-5.4) 02/21/21 14:05 02/21/21 Hgb 14.1 g/dL (12.0-15.0) 02/21/21 14:05 02/21/21 Hct 42.6 % (37-47) 02/21/21 14:05 02/21/21 Plt Count 112 K/mm3 (150-450) L 02/21/21 14:05 02/21/21 CHEMISTRY Potassium 4.4 mmol/L (3.3-5.1) 06/27/24 07:46 06/27/24 Sodium 140 mmol/L (133-145) 06/27/24 07:46 06/27/24 BUN 11 mg/dL (4-19) 06/27/24 07:46 06/27/24 Creatinine 0.74 mg/dL (0.70-1.20) 06/27/24 07:46 06/27/24 Glucose 81 mg/dL (70-99) 06/27/24 07:46 06/27/24 TSH 3.44 uIU/mL (0.358-3.74) 10/02/23 07:35 10/02/23 COAG Pre-Assessment Diagnosis/Proposed Procedure Planned Operative Procedure(s): COLONOSCOPY Anesthesia History Anesthesia History - quantitative associate: Anesthesia History - quantitative associate Hx Hospitalization No 10/30/24 11:55 Any Problems With Anesthesia No 10/30/24 11:55 Cholinesterase deficiency No 10/30/24 11:55 You/Your Family Experience No 10/30/24 11:55 fever (hyperthermia) with Relationship Recent Exposure to Contagious No 02/21/21 13:39 Disease Does patient have nerve No 10/30/24 11:55 stimulator Patient instructed to have device shut off --Does patient have Pacemaker No 11/03/24 10:27 or ICD? When Was Last Pacemaker Check QUESTION #4 FULL TEXT: You/Your Family Experience fever (hyperthermia) with Anesthesia Last Oral Intake Last Oral intake: Last Oral Intake NPO since 05:00 11/03/24 10:27 Meds taken in AM with sips of No 11/03/24 10:27 water? Meds patient instructed to take am of surgery PONV PONV - quantitative associate: PONV - quantitative associate Female Yes 10/30/24 11:55 HX of Motion Sickness Yes 10/30/24 11:55 HX of N/V After Surgery No 10/30/24 11:55 Non-Smoker Yes 10/30/24 11:55 Duration of Surgery greater No 10/30/24 11:55 than 60 minutes Number of Risk Factors 3 10/30/24 11:55 PONV Score Moderate Risk 10/30/24 11:55 Height & Weight Height & Weight: Anesthesia: Height & Weight Height 5 ft 6 in 11/03/24 10:27 Weight: 70 kg 11/03/24 10:27 Body Mass Index (BMI) 24.9 11/03/24 10:27 Respiratory Assessment Respiratory Assessment - quantitative associate: Respiratory Tract Infection Hx - quantitative associate Hx Respiratory Tract Infection No 10/30/24 11:55 STOP Sleep Apnea STOP Sleep Apnea - quantitative associate: STOP Sleep Apnea - quantitative associate Hx Hypertension No 10/30/24 11:55 Hx Sleep Apnea No 10/30/24 11:55 CPAP No 02/21/21 15:41 BIPAP Do you snore loudly (louder No 10/30/24 11:55 than talking or can be heard Do you often feel tired/ No 10/30/24 11:55 fatigued/ sleepy during daytime? Has anyone observed you stop No 10/30/24 11:55 breathing during sleep? STOP Results Negative 10/30/24 11:55 QUESTION #5 FULL TEXT : Do you snore loudly (louder than talking or can be heard through closed doors)? 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 Specify any problems Hx of Preganancy in last 3 No 10/30/24 11:55 Months Nurse Filling Out Transfusion HerbertZOTRE 10/30/24 11:55 & Questions: Date: 10/30/24 10/30/24 11:55 Time: 11:57 10/30/24 11:55 Patient unable to answer at this time (ie. confused, unrespo /Reproduction History /Reproductive History - quantitative associate: /Reproductive Hx- quantitative associate Hx Now No 10/30/24 11:55 Gestational Age (in weeks): EDC: Hx Hx Para Hx Section SAB No 10/30/24 11:55 Active Medications Active Medications: Current Medications Generic Name Dose Route Start Last Admin Trade Name Freq PRN Reason Stop Dose Admin Lactated Ringer's 1,000 mls @ 15 mls/hr 11/03/24 10:15 11/03/24 10:44 IV 15 mls/hr .Q48H JEFFERSON Administration PFSH Medical History Non-smoker Wears glasses History of steroid therapy Thyroid disease Rheumatoid arthritis Arthritis Back pain Migraine headache Fibromyalgia History of pain when walking History of irregular heartbeat Home Medications ?Medication ?Instructions ?Recorded ?Last Taken ?Type thyroid (pork) 60 mg tablet (TOOL AND DIE REPAIRER 60 mg PO DAILY 02/11/21 02/21/21 History Thyroid) peg 3350-electrolytes 236 240 ml PO Q10M #4,000 mL 09/11/24 Unknown Rx gram-22.74 gram-6.74 gram-5.86 gram solution (Golytely) Allergy/AdvReac Type Severity Reaction Status Date / Time tramadol Allergy Other Verified 11/03/24 10:24 Surgical History Hx of prior ablation treatment Hx of hysterectomy Social History Smoking Status: Never smoker Review of Systems (Anesthesia) ROS Narrative System reviewed and no additional complaints, except as documented.
--- NOTE | 2024-11-03 11:08 | PCM.HP.STD ---
HPI - General General Date of Admission: 11/03/24 Date of Service: 11/03/24 Chief Complaint: bloating and abdominal pain HPI Narrative REBEKAH VARGAS, is a 49 F who presents Chief Complaint: bloating Pt referred for issues with bloating, abd pain and constipation. Pt does not feel constipated however xray showed constipation. She has a bm up to 10x per day. She feels bloated even after eating healthy meals. She has cut out gluten and oats in the past without relief. She feels nausea in the morning but no vomiting or heartburn. PT is s/p laparoscopic hysterectomy and feels tenderness near the umbilicus. She wonders if this is related to scar tissue. Last colonoscopy was in 2019 with recommendation for repeat in 3 years however she has not completed this yet. 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 60 mg PO DAILY 02/11/21 02/21/21 History Thyroid) peg 3350-electrolytes 236 240 ml PO Q10M #4,000 mL 09/11/24 Unknown Rx gram-22.74 gram-6.74 gram-5.86 gram solution (Golytely) Allergy/AdvReac Type Severity Reaction Status Date / Time tramadol Allergy Other Verified 11/03/24 10:24 Surgical History Hx of prior ablation treatment Hx of hysterectomy Social History Smoking Status: Never smoker ROS Constitutional Constitutional: Denies fatigue, fever(s), poor appetite, weight gain or weight loss Gastrointestinal Gastrointestinal: Denies belching, bloating, change in bowel habits, change in stool character, chewing difficulty, coffee ground emesis, constipation, cramping, diarrhea, dyspepsia, dysphagia, early satiety, excessive flatus, fecal incontinence, heartburn, hematemesis, hematochezia, hemorrhoids, loose stools, melena, nausea, odynophagia, rectal bleeding, tenesmus, vomiting or weight changes Vital Signs Vital Signs Vital Signs: 11/03/24 10:27 11/03/24 10:27 11/03/24 11:00 Temperature 98.8 F 98.8 F Temperature Source Temporal Pulse Rate 57 L 57 L Respiratory Rate 16 16 Respiratory Pattern Normal Blood Pressure 99/75 99/75 Blood Pressure Mean 83 Blood Pressure Source Monitor Blood Pressure Position Sitting Blood Pressure Location Left Arm Pulse Ox 100 100 Oxygen Delivery Method Room Air Room Air Weight Weight: 154 lb 5.177 oz Body Mass Index (BMI) 24.9 Physical Exam Const alert, oriented x3, no apparent distress and healthy appearing General Appearance: cooperative GI normal to inspection, nondistended, normoactive bowel sounds, soft to palpation, non-tender and non-distended Percussion: normal to percussion Rectal Exam: deferred Assessment & Plan Assessment/Plan (1) Screening for colon cancer: (2) Constipation: PLAN: Assessment and Plan Assessment and Plan (1) Screening for colon cancer: Status: Acute (2) Constipation: Status: Acute Plan: Rebekah is a 48 yo female pt here today for evaluation of constipation found on Xray. She does not feel constipatied and has a bowel movement daily. Last colonoscopy was in 2019 with recommendation for repeat in 3 years however this has not yet been done. Her main concern today is bloating. This may be due to constipation. I encouraged increasing daily fiber with supplement and miralax at least once per week. SHe will also undergo screening colonoscopy. SHe was scheduled for this today. -Colonoscopy -Start fiber supplement -Start miralax at least once per week and titrate up as tolerated -f/u after procedure
--- NOTE | 2024-11-03 11:15 | COLBX_PTH ---
PATIENT: MAJOR VARGAS LOC: [facility] U#:[id number] AGE/SX: 49/F ROOM: RE11/03/[address]: Dr. Kenney De Souza DO : 1975 BED: DIS: 11/03/2024 SPEC #: [id number] RECD: 11/03/24 13:34 STATUS: TRAY REYadira #: [id number] GIDEON: 11/03/24 11:[address]: Kenney De Souza DEPT: SURGICAL PATHOLOGY RECD BY: Abdi Gamez ENTERED: 11/03/24 15:21 SP TYPE: COLON BX ABELINO DR: Dr. Kyle Neville DO Tissues: A - Cecum, NOS B - Ileum, NOS C - COLON BIOPSY Procedures: Immunohistochemical Stains Surgery Specimen Level IV IHC Stain ADDITIONAL HEADER OPERATION: Colonoscopy with biopsy PRE-OP DIAGNOSIS: Screening for colon cancer, constipation TISSUE SUBMITTED: A- Cecum biopsy, B- Terminal ileum biopsy, C- Random colon biopsy MICROSCOPIC DIAGNOSIS A. Cecum, biopsy: - Colonic mucosa with atypical lymphoid proliferation - see note. Note: IHC was performed to further assess the prominent mucosal lymphoid tissue, revealing an abnormal staining pattern. This case will be sent to [facility] for formal consultation with the Hematopathology division. A separate report from [facility] will follow. B. Terminal ileum, biopsy: - Small intestinal mucosa with prominent mucosal lymphoid aggregate. C. Colon, random, biopsy: - No specific pathologic change. - The histologic features of microscopic colitis are not demonstrated. MICROSCOPIC DESCRIPTION Slides are reviewed. Slides are reviewed. All matched controls reacted appropriately. These tests were developed and their performance characteristics determined by [facility]. They may not have been cleared or approved by the U.S. Food and Drug Administration. The FDA has determined that such clearance or approval is not necessary. The above immunohistochemical markers and/or special stains have been reviewed by the Pathologist. GROSS DESCRIPTION A. Received in fixative is one container labeled with the patient's name and designated Cecum biopsy. The specimen consists of one irregular fragment of light flores soft tissue that measures 0.3 cm. The specimen is totally submitted in one cassette. B. Received in fixative is one container labeled with the patient's name and designated Terminal ileum biopsy. The specimen consists of two irregular fragments of light flores soft tissue that measure 0.3 and 0.6 cm. The specimen is totally submitted in one cassette. C. Received in fixative is one container labeled with the patient's name and designated Random colonic biopsy. The specimen consists of multiple irregular fragments of light flores soft tissue that in aggregate measure 1.4 x 0.4 x 0.1 cm in aggregate. The specimen is totally submitted in one cassette. [place] 11/03/2024 [facility]:[id number] ADDENDUM ADDENDUM ADDENDUM ADDENDUM ADDENDUM ADDENDUM ADDENDUM ADDENDUM ADDENDUM ADDENDUM ADDENDUM ADDENDUM ADDENDUM ADDENDUM ADDENDUM ADDENDUM ADDENDUM ADDENDUM ADDENDUM ADDENDUM ADDENDUM ADDENDUM ADDENDUM ADDENDUM ADDENDUM 12/08/2024 14:51 ADDENDUM 11/26/2024 16:48 ADDENDUM 11/26/2024 16:48 ADDENDUM 11/26/2024 16:48 ADDENDUM 11/26/2024 16:48 ADDENDUM 11/26/2024 16:48 This addendum is added to incorporate an outside pathology consultation report for part A. (Note: this is to report the molecular testing only. The surgical pathology report for part A is pending.) The case was examined at [facility] by Dr. Grady (#[id number]) and the following diagnosis was rendered. IGH / B-CELL GENE REARRANGEMENT: IGH PCR PATTERN: Polyclonal pattern IGH INTERPRETATION: There is no evidence of a clonal B-cell population in this sample. Run and sample controls meet acceptable criteria. T-CELL CLONALITY PANEL: GTCR PATTERN: Polyclonal pattern TCRB PCR PATTERN: Polyclonal pattern TCRGB INTERPRETATION: There is no evidence of a clonal T-cell population in this sample by TCRG and TCRB PCR. Run and sample controls meet acceptable criteria. Please see complete above mentioned consultation report in EMR This addendum is added to incorporate an outside pathology consultation report. The case was examined at [facility] by Dr. Vela (#[id number]) and the following diagnosis was rendered. A. Cecum, biopsy: No evidence of lymphoma involvement. See comment and synoptic report. Colonic mucosa with reactive lymphoid follicles and a small granuloma. AFB and GMS stains are negative. B. Terminal ileum, biopsy: No evidence of lymphoma involvement. See comment and synoptic report. Small intestinal mucosa with reactive lymphoid follicles. Diagnosis Comment: The combined morphologic and immunophenotypic findings are consistent with mucosal reactive follicles. IgH PCR, TCRG and TCRB PCR performed at [facility] on block A (cecum biopsy), and showed no evidence of a clonal B-cell population, or a clonal T-cell population in this sample. Overall, there is no evidence of lymphoma involvement. IGH/B-cell Gene Rearrangement: IGH PCR PATTERN: Polyclonal pattern IGH INTERPRETATION: There is no evidence of a clonal B-cell population in this sample. Run and sample controls meet acceptable criteria. T-CELL COLNALITY PANEL: GTCR PATTERN: Polyclonal pattern TCRB PCR PATTERN: Polyclonal pattern TCRGB INTERPRETATION: There is no evidence of a clonal T-cell population in this sample by TCRG and TCRB PCR. Run and sample controls meet acceptable criteria. Please see complete above mentioned consultation report in EMR
--- NOTE | 2024-11-03 11:47 | OP.PROVAT_ITS ---
11/03/2024 Kyle Neville Re : Colonoscopy procedure for Rebekah Avila Dear Jamin This procedure was performed on Sunday, November 03, 2024. My impressions and recommendations are as follows: Impressions : - One 4 mm polyp in the cecum, removed with a jumbo cold forceps. Resected and retrieved. - Congested mucosa in the sigmoid colon, in the transverse colon and in the ascending colon. Biopsied. - The examined portion of the ileum was normal. Biopsied. Recommendations : - Discharge patient to home. - Resume previous diet. - Continue present medications. - Await pathology results. - Repeat colonoscopy in 5 years for surveillance. My findings are described in the full procedure note, which is enclosed. If I can be of further assistance, please feel free to contact me at . Sincerely, Kenney De Souza, 11/03/2024 11:46:48 AM This report has been signed electronically.
--- NOTE | 2024-11-03 11:47 | OP.COLON_ITS ---
Patient Name: Rebekah Avila Procedure Date: 11/03/2024 11:13 AM Date of : 1975 Age: 49 Procedure: Colonoscopy Indications: Chronic diarrhea Providers: Kenney De Souza DO Referring MD: Kyle Neville Medicines: Monitored Anesthesia Care Patient Profile: This is a 49 year old female. Refer to note in patient chart for documentation of history and physical. Last Colonoscopy: 5 years ago. Complications: No immediate complications. Procedure: Pre-Anesthesia Assessment: - Prior to the procedure, a History and Physical was performed, and patient medications and allergies were reviewed. The patient is competent. The risks and benefits of the procedure and the sedation options and risks were discussed with the patient. All questions were answered and informed consent was obtained. Patient identification and proposed procedure were verified by the physician in the pre-procedure area. Mental Status Examination: alert and oriented. Airway Examination: normal oropharyngeal airway and neck mobility. Respiratory Examination: clear to auscultation. CV Examination: normal. Prophylactic Antibiotics: The patient does not require prophylactic antibiotics. Prior Anticoagulants: The patient has taken no anticoagulant or antiplatelet agents. ASA Grade Assessment: II - A patient with mild systemic disease. After reviewing the risks and benefits, the patient was deemed in satisfactory condition to undergo the procedure. The anesthesia plan was to use monitored anesthesia care (MAC). Immediately prior to administration of medications, the patient was re-assessed for adequacy to receive sedatives. The heart rate, respiratory rate, oxygen saturations, blood pressure, adequacy of pulmonary ventilation, and response to care were monitored throughout the procedure. The physical status of the patient was re-assessed after the procedure. After I obtained informed consent, the scope was passed under direct vision. Throughout the procedure, the patient's blood pressure, pulse, and oxygen saturations were monitored continuously. The colonoscope was introduced through the anus and advanced to the terminal ileum. The colonoscopy was performed without difficulty. The patient tolerated the procedure well. The quality of the bowel preparation was adequate. The ileocecal valve, appendiceal orifice, and rectum were photographed. Scope In: 11:28:47 AM Scope Withdrawal Time 0 hours 9 minutes 31 seconds Scope Out: 11:41:56 AM Total Procedure Duration Time 0 hours 13 minutes 9 seconds Findings: The perianal and digital rectal examinations were normal. A 4 mm polyp was found in the cecum. The polyp was sessile. The polyp was removed with a jumbo cold forceps. Resection and retrieval were complete. Verification of patient identification for the specimen was done. Estimated blood loss was minimal. An area of mildly congested mucosa was found in the sigmoid colon, in the transverse colon and in the ascending colon. Biopsies were taken with a cold forceps for histology. Verification of patient identification for the specimen was done. Estimated blood loss was minimal. The terminal ileum appeared normal. Biopsies were taken with a cold forceps for histology. Verification of patient identification for the specimen was done. Estimated blood loss was minimal. Impression: - One 4 mm polyp in the cecum, removed with a jumbo cold forceps. Resected and retrieved. - Congested mucosa in the sigmoid colon, in the transverse colon and in the ascending colon. Biopsied. - The examined portion of the ileum was normal. Biopsied. Recommendation: - Discharge patient to home. - Resume previous diet. - Continue present medications. - Await pathology results. - Repeat colonoscopy in 5 years for surveillance. Procedure Code(s): --- Professional --- 30367, Colonoscopy, flexible; with biopsy, single or multiple CPT copyright 2021 [employer]. All rights reserved. The codes documented in this report are preliminary and upon skiving machine operator review may be revised to meet current compliance requirements. Kenney De Souza DO 11/03/2024 11:46:48 AM This report has been signed electronically. Number of Addenda: 0 Note Initiated On: 11/03/2024 11:13 AM
--- NOTE | 2024-11-03 11:54 | PCM.POST.ANE ---
Anesthesia: Postop Eval I Current Vital Signs Temperature: 97.5 F Pulse Rate: 57 Blood Pressure: 83/59 Respiratory Rate: 16 Pulse Ox: 96 Oxygen Delivery Method: Room Air Assessment Airway patent: Yes Spontaneous unlabored respirations: Yes Mental status: Asleep nausea: No Vomiting: No Anesthesia Complication: No Fluid Hydration Crystalloid volume administer (ml): 400 Total IV fluid infused: 400 Progress Note Anesthesia document: Postop Eval 1 completed: Yes
--- NOTE | 2024-11-03 12:52 | PCM.POSTANE2 ---
Anesthesia Postop Eval I Sum Postop Eval Completion status Anesthesia document: Postop Eval 1 completed: Yes Anesthesia Postop Eval I Summary Anesthesia Postop Eval I Summary: Anesthesia Postop Eval I: Assessment Summary Airway patent Yes 11/03/24 11:55 [email or web address] Spontaneous unlabored Yes 11/03/24 11:55 [email or web address] respirations Mental status Asleep 11/03/24 11:55 [email or web address] nausea No 11/03/24 11:55 [email or web address] Vomiting No 11/03/24 11:55 [email or web address] Anesthesia Postop Eval I: Fluid Summary Crystalloid volume administer 400 11/03/24 11:55 [email or web address] (ml) Colloids volume administered ( ml) Blood Product volume administered (ml) Total IV fluid infused 400 11/03/24 11:55 [email or web address] Anesthesia Postop Eval I: Summary Notes Anesthesia Complication No 11/03/24 11:55 [email or web address] Anesthesia Complication Comment: Post-operative progress note Anesthesia: Postop Eval II Evaluation Mental status: Awake and Calm Pain Level: 1 nausea: No Vomiting: No Complications Anesthesia Complication: No
== END 2024-11-03 12:29 | disposition home or self-care (01) ==
LOC: EN 10:08 → AC 10:09
PROVIDERS: PCP Family Medicine; Referring Provider Family Medicine; Visit Provider Internal Medicine Gastroenterology
PROC: 0DJD8ZZ Inspection of Lower Intestinal Tract, Via Natural or Artificial Opening Endoscopic (ICD-10-PCS; CPT 45378; principal; 2024-11-03 11:10)
DX: Z12.11 Encounter for screening for malignant neoplasm of colon (principal); M06.9 Rheumatoid arthritis, unspecified; D12.0 Benign neoplasm of cecum; K59.00 Constipation, unspecified; K63.89 Other specified diseases of intestine; K52.9 Noninfective gastroenteritis and colitis, unspecified; K63.5 Polyp of colon; R14.0 Abdominal distension (gaseous); M79.7 Fibromyalgia; E07.9 Disorder of thyroid, unspecified; Z79.890 Hormone replacement therapy; Z90.710 Acquired absence of both cervix and uterus
CPT/HCPCS: 45380; 88305; 88341; 88342; J2405

== ENCOUNTER → 2025-01-03 | Outpatient (CLI) | payer BC, SELFPAY ==
[2025-01-05 16:09] LABS: Immunoglobulin A 107 mg/dL (87-352)
[2025-01-07 12:08] LABS: Calprotectin, Stool 19 ug/g (0-120)
== END | disposition home or self-care (01) ==
PROVIDERS: PCP Family Medicine; Referring Provider Student in an Organized Health Care Education/Training Program; Visit Provider Student in an Organized Health Care Education/Training Program
DX: K59.00 Constipation, unspecified (principal); Z12.11 Encounter for screening for malignant neoplasm of colon
CPT/HCPCS: 36415; 82784; 83516; 83993; 86255